=== PATIENT | male | born 1965 | race Caucasian/White ===

== ENCOUNTER 2017-02-01 13:42 | Observation (INO) | payer OTHER ==
[2017-02-01] MEDS ORDERED: Aspirin 81 MG Tab.Chew PO ONE (14:15)
[2017-02-01] MEDS ORDERED: Sodium Chloride 0.9% 10 ML Syringe FLUSH PRN (14:15)
[2017-02-01] MEDS ORDERED: Sodium Chloride 0.9% 2.5 ML Syringe FLUSH PRN (14:15)
--- NOTE | 2017-02-01 14:33 | EDM.PDOC ---
ED HISTORY OF PRESENT ILLNESS - General Chief Complaint: Cardiovascular Problem Stated Complaint: PT WOULD LIKE TO GET CHECK Time Seen by Provider: 02/01/17 13:52 Source of Information: Reports: Patient History Limitations: Reports: No limitations - History of Present Illness INITIAL COMMENTS - FREE TEXT/NARRATIVE: HISTORY AND PHYSICAL: History of present illness: [51-year-old male with a history of morbid obesity, hypertension previously observed but never treated, long-term smoking history but recently quit, no prior cardiac workup, now presents emergent department complaining of back pain radiating to the chest with right upper extremity pain and aching in the elbow appear patient was ambulating and doing light activity at work when he had sudden onset of pain in his mid back radiating to his chest with right upper extremity pain to his elbow. Patient got short of breath and diaphoretic. No nausea or vomiting. Patient waited and the pain improved but did not resolve completely until he arrived in the emergency department after driving himself from work Review of systems: As per history of present illness and below otherwise all systems reviewed and negative. Past medical history: As per history of present illness and as reviewed below otherwise noncontributory. Surgical history: As per history of present illness and as reviewed below otherwise noncontributory. Social history: No reported history of drug or alcohol abuse. Family history: As per history of present illness and as reviewed below otherwise noncontributory. Physical exam: HEENT: Atraumatic, normocephalic, pupils reactive, negative for conjunctival pallor or scleral icterus, mucous membranes moist, throat clear, neck supple, nontender, trachea midline. Lungs: Clear to auscultation, breath sounds equal bilaterally, chest nontender. Heart: S1S2, regular, negative for clicks, rubs, or JVD. Abdomen: Soft, nondistended, nontender. Negative for masses or hepatosplenomegaly. Negative for costovertebral tenderness. Pelvis: Stable nontender. Genitourinary: Deferred. Rectal: Deferred. Extremities: Atraumatic, negative for cords or calf pain. Neurovascular unremarkable. Neuro: Awake, alert, oriented. Cranial nerves grossly unremarkable. Cerebellum unremarkable. Motor and sensory unremarkable throughout. Exam nonfocal. Diagnostics: [EKG with normal sinus rhythm at 82 normal axis no STEMI incomplete RBBB Chest x-ray unremarkable interpreted by me] Therapeutics: [Aspirin given by mouth] Impression: [Chest pain] Plan: [Signs and symptoms consistent with chest pain possible cardiac etiology. No prior workup and multiple risk factors. Pain-free now with unremarkable EKG. Hemodynamically stable however blood pressure elevated consistent with suspected history of untreated hypertension. Full workup pending including CTA of the chest to rule out aortic involvement or PE. Case discussed with Dr. Patrick Jiménez hospitalist cable installation manager who is aware of history and findings and agrees with observation telemetry admission to his service. Definitive disposition and diagnosis as appropriate pending reevaluation and review of above. - Related Data Allergies/ADRs: Allergies Allergy/AdvReac Type Severity Reaction Status Date / Time No Known Allergies Allergy Verified 02/01/17 13:49 Home Meds: Home Meds . [No Known Home Meds] 02/01/17 [History] Past Medical History HEENT History: Reports: Impaired vision Musculoskeletal History: Reports: Arthritis, Fracture - Past Surgical History Musculoskeletal Surgical History: Reports: Other (see below) Other Musculoskeletal Surgeries/Procedures:: Back and leg Surgery Social & Family History - Tobacco Use Smoking Status *Q: Former Smoker Years of Tobacco use: 37 Packs/Tins Daily: 1 Used Tobacco, but Quit: Yes Month Tobacco Last Used: August - Caffeine Use Caffeine Use: Reports: Coffee Caffeine Use Comment: Pt reports he drinks 3cups daily - Recreational Drug Use Recreational Drug Use: No ED ROS GENERAL - Review of Systems Review Of Systems: See Below (History of present illness) ED EXAM, GENERAL - Physical Exam Exam: See Below (History of present illness) Course - Vital Signs Last Recorded V/S: Last Vital Signs Temp 36.7 C 02/01/17 13:50 Pulse 86 02/01/17 13:50 Resp 18 02/01/17 13:50 BP 162/93 H 02/01/17 13:50 Pulse Ox 96 02/01/17 13:50 - Orders/Labs/Meds Orders: Active Orders 24 hr Category Date Time Status Admission Status [Patient Status] [ADT] Stat ADT 02/01/17 14:47 Ordered EKG 12 Lead [EKG Documentation Completion] [RC] STAT Care 02/01/17 13:45 Active EKG 12 Lead [EKG Documentation Completion] [RC] STAT Care 02/01/17 14:15 Inactive Ang Chest [CT] Stat Exams 02/01/17 14:15 Ordered Chest 1V Frontal [CR] Stat Exams 02/01/17 14:15 Ordered Sodium Chloride 0.9% [Normal Saline] 1,000 ml Med 02/01/17 14:15 Active IV ASDIRECTED Sodium Chloride 0.9% [Saline Flush] Med 02/01/17 14:15 Active 10 ml FLUSH ASDIRECTED PRN Sodium Chloride 0.9% [Saline Flush] Med 02/01/17 14:15 Active 2.5 ml FLUSH ASDIRECTED PRN Peripheral IV Insertion Adult [OM.PC] Stat Oth 02/01/17 14:15 Ordered Peripheral IV Insertion Adult [OM.PC] Stat Oth 02/01/17 14:15 Ordered Medication Orders Sodium Chloride (Normal Saline) 1,000 mls @ 125 mls/hr IV ASDIRECTED ABIMBOLA Last Admin: 02/01/17 14:38 Dose: 125 mls/hr Sodium Chloride (Saline Flush) 10 ml FLUSH ASDIRECTED PRN PRN Reason: Keep Vein Open Sodium Chloride (Saline Flush) 2.5 ml FLUSH ASDIRECTED PRN PRN Reason: Keep Vein Open Last Admin: 02/01/17 14:39 Dose: 2.5 ml Labs: Laboratory Tests 02/01/17 02/01/17 02/01/17 Range/Units 14:28 14:28 14:28 WBC 7.23 (4.0-11.0) K/uL RBC 5.27 (4.50-5.90) M/uL Hgb 16.0 (13.0-17.0) g/dL Hct 46.7 (38.0-50.0) % MCV 88.6 (80.0-98.0) fL MCH 30.4 (27.0-32.0) pg MCHC 34.3 (31.0-37.0) g/dL RDW Std Deviation 40.4 (28.0-62.0) fl RDW Coeff of Rosalino 13 (11.0-15.0) % Plt Count 218 (150-400) K/uL MPV 11.60 (7.40-12.00) fL Neut % (Auto) 52.0 (48.0-80.0) % Lymph % (Auto) 38.6 (16.0-40.0) % King % (Auto) 6.2 (0.0-15.0) % Eos % (Auto) 2.5 (0.0-7.0) % Baso % (Auto) 0.7 (0.0-1.5) % Neut # (Auto) 3.8 (1.4-5.7) K/uL Lymph # (Auto) 2.8 H (0.6-2.4) K/uL King # (Auto) 0.5 (0.0-0.8) K/uL Eos # (Auto) 0.2 (0.0-0.7) K/uL Baso # (Auto) 0.1 (0.0-0.1) K/uL Nucleated RBC % 0.0 /100WBC Nucleated RBCs # 0 K/uL Sodium 135 L (136-146) mmol/L Potassium 4.3 (3.5-5.1) mmol/L Chloride 103 (98-110) mmol/L Carbon Dioxide 20 L (21-31) mmol/L BUN 11 (6.0-23.0) mg/dL Creatinine 0.8 (0.6-1.5) mg/dL Est Cr Clr Drug Dosing 112.80 mL/min Estimated GFR (MDRD) > 60.0 ml/min Glucose 219 H (60-110) mg/dL Calcium 10.0 (8.8-10.8) mg/dL Total Bilirubin 0.4 (0.1-1.5) mg/dL AST 23 (5-40) IU/L ALT 30 (8-54) IU/L Alkaline Phosphatase 112 (40-150) Troponin I < 0.10 (0.0-0.29) NG/ML Total Protein 8.5 H (6.0-8.0) g/dL Albumin 4.7 (3.5-5.0) g/dL Globulin 3.8 H (2.0-3.5) g/dL Albumin/Globulin Ratio 1.2 L (1.3-2.8) Meds: Medications Generic Name Dose Route Start Last Admin Trade Name Freq PRN Reason Stop Dose Admin Sodium Chloride 1,000 mls @ 125 mls/hr 02/01/17 14:15 02/01/17 14:38 Normal Saline IV 125 mls/hr ASDIRECTED ABIMBOLA Administration Sodium Chloride 10 ml 02/01/17 14:15 Saline Flush FLUSH ASDIRECTED PRN Keep Vein Open Sodium Chloride 2.5 ml 02/01/17 14:15 02/01/17 14:39 Saline Flush FLUSH 2.5 ml ASDIRECTED PRN Administration Keep Vein Open Discontinued Medications Generic Name Dose Route Start Last Admin Trade Name Freq PRN Reason Stop Dose Admin Aspirin 324 mg 02/01/17 14:15 02/01/17 14:39 Aspirin PO 02/01/17 14:16 324 mg ONETIME ONE Administration Iopamidol 50 ml 02/01/17 14:43 02/01/17 14:45 Isovue Multipack-370 (76%) IVPUSH 02/01/17 14:44 50 ml ONETIME STA Administration Departure - Departure Time of Disposition: 15:27 Disposition: Refer to Observation Condition: good Clinical Impression: Chest pain, Hypertension, New onset type 2 diabetes mellitus Forms: ED Department Discharge - My Orders Last 24 Hours: My Active Orders 02/01/17 13:45 EKG 12 Lead [EKG Documentation Completion] [RC] STAT 02/01/17 14:15 EKG 12 Lead [EKG Documentation Completion] [RC] STAT Ang Chest [CT] Stat Chest 1V Frontal [CR] Stat Sodium Chloride 0.9% [Normal Saline] 1,000 ml IV ASDIRECTED Sodium Chloride 0.9% [Saline Flush] 10 ml FLUSH ASDIRECTED PRN Sodium Chloride 0.9% [Saline Flush] 2.5 ml FLUSH ASDIRECTED PRN Peripheral IV Insertion Adult [OM.PC] Stat Peripheral IV Insertion Adult [OM.PC] Stat 02/01/17 14:47 Admission Status [Patient Status] [ADT] Stat - Assessment/Plan Last 24 Hours: My Active Orders 02/01/17 13:45 EKG 12 Lead [EKG Documentation Completion] [RC] STAT 02/01/17 14:15 EKG 12 Lead [EKG Documentation Completion] [RC] STAT Ang Chest [CT] Stat Chest 1V Frontal [CR] Stat Sodium Chloride 0.9% [Normal Saline] 1,000 ml IV ASDIRECTED Sodium Chloride 0.9% [Saline Flush] 10 ml FLUSH ASDIRECTED PRN Sodium Chloride 0.9% [Saline Flush] 2.5 ml FLUSH ASDIRECTED PRN Peripheral IV Insertion Adult [OM.PC] Stat Peripheral IV Insertion Adult [OM.PC] Stat 02/01/17 14:47 Admission Status [Patient Status] [ADT] Stat
[2017-02-01] MEDS: Sodium Chloride 0.9% 1,000 ML IV SCH (14:38)
[2017-02-01] MEDS ORDERED: Iopamidol 755 MG/ML 500 ML Multipack Bottle IVPUSH STA (14:43)
[2017-02-01 14:59] LABS: CHLORIDE,CL 103 mmol/L (98-110); SODIUM,NA 135 mmol/L (136-146)
--- NOTE | 2017-02-01 15:25 | PCM.HP ---
H&P History of Present Illness - General Date of Service: 02/01/17 Source of Information: Patient - History of Present Illness Onset of Symptoms: Reports: today Duration of Symptoms: Reports: Minutes: Location: Reports: back, upper extremity, right Quality: Reports: Sharp, Stabbing Severity: severe Improves with: Reports: None Worsens with: Reports: None Associated Symptoms: Reports: diaphoresis - Related Data Allergies/Adverse Reactions: Allergies Allergy/AdvReac Type Severity Reaction Status Date / Time No Known Allergies Allergy Verified 02/01/17 13:49 Home Medications: Home Meds . [No Known Home Meds] 02/01/17 [History] Past Medical History HEENT History: Reports: Impaired vision Musculoskeletal History: Reports: Arthritis, Fracture - Past Surgical History Musculoskeletal Surgical History: Reports: Other (see below) Other Musculoskeletal Surgeries/Procedures:: Back and leg Surgery Other Surgical History Comment: ORIF. L tibia fibula Social & Family History - Family History Oncologic: Reports: Other (see below) (sister 18 of "cancer") - Tobacco Use Smoking Status *Q: Former Smoker Tobacco Use Within Last Twelve Months: Snuff/Dip Years of Tobacco use: 37 Packs/Tins Daily: 1 Used Tobacco, but Quit: Yes Month Tobacco Last Used: August - Caffeine Use Caffeine Use: Reports: Coffee Caffeine Use Comment: Pt reports he drinks 3cups daily - Recreational Drug Use Recreational Drug Use: No H&P Review of Systems - Review of Systems: Review Of Systems: See Below General: Reports: no symptoms HEENT: Reports: no symptoms Pulmonary: Reports: Shortness of Breath, Other (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) Cardiovascular: Reports: chest pain Gastrointestinal: Reports: No symptoms Genitourinary: Reports: no symptoms Musculoskeletal: Reports: no symptoms Skin: Reports: no symptoms Psychiatric: Reports: no symptoms Neurological: Reports: No Symptoms Exam - Exam Exam: See Below - Vital Signs Vital Signs: Last Vital Signs Temp 36.7 C 02/01/17 13:50 Pulse 86 02/01/17 13:50 Resp 18 02/01/17 13:50 BP 162/93 H 02/01/17 13:50 Pulse Ox 96 02/01/17 13:50 Weight: 123.6 kg - Exam General: alert, oriented HEENT: Posterior pharynx clear (small pharyngeal opening) Neck: other (fleshy neck) Lungs: Decreased breath sounds, Other (notenderness chest wall or intrascapular area) Cardiovascular: regular rate Abdomen: normal bowel sounds Rectal (Males) Exam: Deferred Back Exam: normal inspection Extremities: normal inspection (scars L mackey) Neuro Extensive - Mental Status: alert, oriented x3, memory intact Psychiatric: alert, normal affect - Patient Data Lab Results last 24 hrs: Laboratory Results - last 24 hr 02/01/17 02/01/17 02/01/17 Range/Units 14:28 14:28 14:28 WBC 7.23 (4.0-11.0) K/uL RBC 5.27 (4.50-5.90) M/uL Hgb 16.0 (13.0-17.0) g/dL Hct 46.7 (38.0-50.0) % MCV 88.6 (80.0-98.0) fL MCH 30.4 (27.0-32.0) pg MCHC 34.3 (31.0-37.0) g/dL RDW Std Deviation 40.4 (28.0-62.0) fl RDW Coeff of Rosalino 13 (11.0-15.0) % Plt Count 218 (150-400) K/uL MPV 11.60 (7.40-12.00) fL Neut % (Auto) 52.0 (48.0-80.0) % Lymph % (Auto) 38.6 (16.0-40.0) % Frederick % (Auto) 6.2 (0.0-15.0) % Eos % (Auto) 2.5 (0.0-7.0) % Baso % (Auto) 0.7 (0.0-1.5) % Neut # (Auto) 3.8 (1.4-5.7) K/uL Lymph # (Auto) 2.8 H (0.6-2.4) K/uL Frederick # (Auto) 0.5 (0.0-0.8) K/uL Eos # (Auto) 0.2 (0.0-0.7) K/uL Baso # (Auto) 0.1 (0.0-0.1) K/uL Nucleated RBC % 0.0 /100WBC Nucleated RBCs # 0 K/uL Sodium 135 L (136-146) mmol/L Potassium 4.3 (3.5-5.1) mmol/L Chloride 103 (98-110) mmol/L Carbon Dioxide 20 L (21-31) mmol/L BUN 11 (6.0-23.0) mg/dL Creatinine 0.8 (0.6-1.5) mg/dL Est Cr Clr Drug Dosing 112.80 mL/min Estimated GFR (MDRD) > 60.0 ml/min Glucose 219 H (60-110) mg/dL Calcium 10.0 (8.8-10.8) mg/dL Total Bilirubin 0.4 (0.1-1.5) mg/dL AST 23 (5-40) IU/L ALT 30 (8-54) IU/L Alkaline Phosphatase 112 (40-150) Troponin I < 0.10 (0.0-0.29) NG/ML Total Protein 8.5 H (6.0-8.0) g/dL Albumin 4.7 (3.5-5.0) g/dL Globulin 3.8 H (2.0-3.5) g/dL Albumin/Globulin Ratio 1.2 L (1.3-2.8) Result Diagrams: 02/01/17 14:28 02/01/17 14:28 EKG INTERPRETATION Rhythm: NSR P-wave: present QRS: RBBB (incomplete) ST-T: normal QT: normal *Q Meaningful Use (ADM) - VTE *Q VTE Criteria *Q: - Stroke *Q Stroke Criteria *Q: - AMI *Q AMI Criteria *Q: Problem List Initiated/Reviewed/Updated: Yes Orders Last 24hrs: Active Orders 24 hr Category Date Time Status EKG 12 Lead [EKG Documentation Completion] [RC] STAT Care 02/01/17 13:45 Active EKG 12 Lead [EKG Documentation Completion] [RC] STAT Care 02/01/17 14:15 Inactive Ang Chest [CT] Stat Exams 02/01/17 14:15 Ordered Chest 1V Frontal [CR] Stat Exams 02/01/17 14:15 Ordered Sodium Chloride 0.9% [Normal Saline] 1,000 ml Med 02/01/17 14:15 Active IV ASDIRECTED Sodium Chloride 0.9% [Saline Flush] Med 02/01/17 14:15 Active 10 ml FLUSH ASDIRECTED PRN Sodium Chloride 0.9% [Saline Flush] Med 02/01/17 14:15 Active 2.5 ml FLUSH ASDIRECTED PRN Peripheral IV Insertion Adult [OM.PC] Stat Ot 02/01/17 14:15 Ordered Peripheral IV Insertion Adult [OM.PC] Stat Ot 02/01/17 14:15 Ordered Medication Orders Sodium Chloride (Normal Saline) 1,000 mls @ 125 mls/hr IV ASDIRECTED ABIMBOLA Last Admin: 02/01/17 14:38 Dose: 125 mls/hr Sodium Chloride (Saline Flush) 10 ml FLUSH ASDIRECTED PRN PRN Reason: Keep Vein Open Sodium Chloride (Saline Flush) 2.5 ml FLUSH ASDIRECTED PRN PRN Reason: Keep Vein Open Last Admin: 02/01/17 14:39 Dose: 2.5 ml Assessment/Plan Comment:: atypical chest pain, non-exertional,sharp lack of associated symptoms Risk factors; hypertension elevated blood sugar smoking overweight/sedentary asa, beta miroslava check lipids further troponins and ECGs
--- NOTE | 2017-02-01 15:41 | CR ---
EXAMINATION: PA chest radiograph. HISTORY: Chest pain. FINDINGS: The trachea is midline. The cardiomediastinal silhouette is within normal limits. No pulmonary infil trates, effusions or pneumothorax. There is a mild interstitial prominence. Osseous structures appear unremarkable. IMPRESSION: No acute cardiopulmonary process.
--- NOTE | 2017-02-01 15:55 | CT ---
EXAMINATION: CTA chest HISTORY: Chest pain COMPARISON: 07/03/2009 TECHNIQUE: Axial CT images obtained through the chest following the administration of Isovue-370. Co rachel and sagittal reconstructions obtained. FINDINGS: The lungs are clear without focal consolidation. No pleural effusion or pneumothorax. Ther e is a calcified granuloma within the left upper lobe. The heart is normal in size without a pericar dial effusion. The thoracic aorta is normal in caliber. No mediastinal or hilar lymphadenopathy. The main and central pulmonary arteries are patent without evidence of a pulmonary embolism. Evaluation of the subsegmental pulmonary arteries and the left lower lobe is difficult due to motion. The cent ral airways are clear. No axillary lymphadenopathy. The visualized images of the upper abdomen appear normal. No suspicious osseous abnormalities identi fied. IMPRESSION: No acute cardiopulmonary finding.
[2017-02-01] MEDS: Nicotine 14 MG/24 Hr Patch TRDERM SCH (16:34)
[2017-02-01] MEDS: Metoprolol Tartrate 50 MG Tab PO SCH (21:02)
[2017-02-02] MEDS: Sodium Chloride 0.9% 1,000 ML IV SCH (01:25)
[2017-02-02] MEDS ORDERED: Aspirin 81 MG Tab.Chew PO SCH (09:00)
[2017-02-02] MEDS: Metoprolol Tartrate 50 MG Tab PO SCH (09:33)
[2017-02-02] MEDS: Nicotine 14 MG/24 Hr Patch TRDERM SCH (09:33)
[2017-02-02 09:34] VITALS: BP 124/89
--- NOTE | 2017-02-03 16:16 | PCM.DCSUM1 ---
<Mack Thacker - Last Filed: 02/03/17 16:11> Discharge Summary - Hospital Course Free Text/Narrative:: Admission diagnoses: #1. Chest pain Discharge diagnoses: #1. Chest pain, resolved #2. Dyslipidemia #3. Newly diagnosed type II diabetic 51-year-old male admitted with chest pain. Full cardiac workup was done and unremarkable. Serial troponins were negative. EKG was unremarkable. Chest x-ray was unremarkable. CT angiogram was unremarkable. CBC and CMP were unremarkable. Lipid panel showed elevated triglycerides and elevated cholesterol level. Patient also had elevated sugars during admission and hemoglobin A1c was obtained which was 10.7. Patient had no chest pain during admission. He also denied any shortness of breath, wheezing, cough, abdominal pain, nausea, vomiting, constipation, diarrhea, abdominal pain, dizziness, headache. The time of discharge the patient had no chest pain, was ambulating without any problems , tolerating oral intake, voiding appropriately. - Discharge Data Discharge Date: 02/02/17 Discharge Disposition: Home, Self-Care 01 Condition: Fair - Discharge Diagnosis/Problem(s) (1) Dyslipidemia SNOMED Code(s): 078707190 ICD Code: E78.5 - HYPERLIPIDEMIA, UNSPECIFIED Status: Acute (2) Chest pain SNOMED Code(s): 61977029 ICD Code: R07.9 - CHEST PAIN, UNSPECIFIED Status: Acute (3) Hypertension SNOMED Code(s): 60015498 ICD Code: I10 - ESSENTIAL (PRIMARY) HYPERTENSION Status: Acute (4) New onset type 2 diabetes mellitus SNOMED Code(s): 27673091 ICD Code: E11.9 - TYPE 2 DIABETES MELLITUS WITHOUT COMPLICATIONS Status: Acute - Patient Summary/Data Consults: Consultations 02/02/17 08:50 Consult to Diabetic Nurse Specialist [CONS] Routine - Patient Instructions Diet: Heart Healthy Diet Activity: As Tolerated Driving: May Drive Today Showering/Bathing: May Shower Notify Provider of: Fever, Increased Pain, Nausea and/or Vomiting - Discharge Plan Prescriptions/Med Rec: Lisinopril 10 mg PO DAILY #30 tablet Rosuvastatin [Crestor] 20 mg PO BEDTIME #30 tablet metFORMIN [Glucophage XR] 500 mg PO BIDMEALS #60 tab.er Home Medications: Home Meds Aspirin 81 mg PO DAILY tab.chew 02/02/17 [Rx] Lisinopril 10 mg PO DAILY #30 tablet 02/02/17 [Rx] Rosuvastatin [Crestor] 20 mg PO BEDTIME #30 tablet 02/02/17 [Rx] metFORMIN [Glucophage XR] 500 mg PO BIDMEALS #60 tab.er 02/02/17 [Rx] Patient Handouts: Nonspecific Chest Pain, Hypertension, [id number], Lisinopril tablets, Metformin tablets, Rosuvastatin Tablets, Type 2 Diabetes Mellitus, Adult, [id number] Forms: ED Department Discharge Referrals: Ashlyn Horne MD [Physician] - 02/14/17 8:00 am PCP,None [Primary Care Provider] - - Discharge Summary/Plan Comment DC Time >30 min.: No Discharge Summary/Plan Comment: Admission diagnoses: #1. Chest pain Discharge diagnoses: #1. Chest pain, resolved #2. Dyslipidemia #3. Newly diagnosed type II diabetic #4. Hypertension 51-year-old male admitted with chest pain. Full cardiac workup was done and unremarkable. Serial troponins were negative. EKG was unremarkable. Chest x-ray was unremarkable. CT angiogram was unremarkable. CBC and CMP were unremarkable. Lipid panel showed elevated triglycerides and elevated cholesterol level. Patient also had elevated sugars during admission and hemoglobin A1c was obtained which was 10.7. Patient had no chest pain during admission. He also denied any shortness of breath, wheezing, cough, abdominal pain, nausea, vomiting, constipation, diarrhea, abdominal pain, dizziness, headache. The time of discharge the patient had no chest pain, was ambulating without any problems , tolerating oral intake, voiding appropriately. Discharge plan: #1. Patient will followup with our molding press operator on February 14, 2017. #2. Patient to followup with Dr. Thacker on Feb 09 2017. #3. Patient started on lisinopril 10 mg daily secondary to elevated blood pressure and new diagnosis of type 2 diabetes #4. Patient started on high intensity statin with Crestor 20 mg at bedtime. Patient's ASCVD score was 30%. #5. Patient started on metformin 500 mg twice a day secondary to elevated hemoglobin A1c of 10.7 and new diagnosis of type 2 diabetes. #6. Patient will be contacted by inclusion paraeducator for further education. #7. Patient will take a baby aspirin daily. - Patient Data Vitals - Most Recent: Last Vital Signs Temp 97.7 F 02/02/17 07:52 Pulse 69 02/02/17 09:33 Resp 22 H 02/02/17 07:52 BP 124/89 02/02/17 09:33 Pulse Ox 94 L 02/02/17 07:52 Weight - Most Recent: 126.552 kg Med Orders - Current: Current Medications Discontinued Medications Aspirin (Aspirin) 324 mg PO ONETIME ONE Stop: 02/01/17 14:16 Last Admin: 02/01/17 14:39 Dose: 324 mg Aspirin (Aspirin) 81 mg PO DAILY [facility] Last Admin: 02/02/17 09:33 Dose: 81 mg Sodium Chloride (Normal Saline) 1,000 mls @ 50 mls/hr IV ASDIRECTED [facility] Last Admin: 02/02/17 01:25 Dose: 50 mls/hr Iopamidol (Isovue Multipack-370 (76%)) 50 ml IVPUSH ONETIME STA Stop: 02/01/17 14:44 Last Admin: 02/01/17 14:45 Dose: 50 ml Metoprolol Tartrate (Lopressor) 50 mg PO Q12HR [facility] Last Admin: 02/02/17 09:33 Dose: 50 mg Nicotine (Habitrol) 14 mg TRDERM DAILY [facility] Last Admin: 02/02/17 09:33 Dose: Not Given Sodium Chloride (Saline Flush) 10 ml FLUSH ASDIRECTED PRN PRN Reason: Keep Vein Open Sodium Chloride (Saline Flush) 2.5 ml FLUSH ASDIRECTED PRN PRN Reason: Keep Vein Open Last Admin: 02/01/17 14:39 Dose: 2.5 ml *Q Meaningful Use (DIS) - VTE *Q VTE Criteria *Q: - Stroke *Q Stroke Criteria *Q: - AMI *Q AMI Criteria *Q: <Patrick Dunbar - Last Filed: 02/03/17 17:17> Discharge Summary - Hospital Course Free Text/Narrative:: I was present with the resident during the history and exam. I discussed the case with the resident and agree with the findings and plan as documented in the resident's note. - Patient Summary/Data Consults: Consultations 02/02/17 08:50 Consult to Diabetic Nurse Specialist [CONS] Routine - Patient Data Vitals - Most Recent: Last Vital Signs Temp 36.5 C 02/02/17 07:52 Pulse 69 02/02/17 09:33 Resp 22 H 02/02/17 07:52 BP 124/89 02/02/17 09:33 Pulse Ox 94 L 02/02/17 07:52 Med Orders - Current: Current Medications Discontinued Medications Aspirin (Aspirin) 324 mg PO ONETIME ONE Stop: 02/01/17 14:16 Last Admin: 02/01/17 14:39 Dose: 324 mg Aspirin (Aspirin) 81 mg PO DAILY [facility] Last Admin: 02/02/17 09:33 Dose: 81 mg Sodium Chloride (Normal Saline) 1,000 mls @ 50 mls/hr IV ASDIRECTED ABIMBOLA Last Admin: 02/02/17 01:25 Dose: 50 mls/hr Iopamidol (Isovue Multipack-370 (76%)) 50 ml IVPUSH ONETIME STA Stop: 02/01/17 14:44 Last Admin: 02/01/17 14:45 Dose: 50 ml Metoprolol Tartrate (Lopressor) 50 mg PO Q12HR [facility] Last Admin: 02/02/17 09:33 Dose: 50 mg Nicotine (Habitrol) 14 mg TRDERM DAILY [facility] Last Admin: 02/02/17 09:33 Dose: Not Given Sodium Chloride (Saline Flush) 10 ml FLUSH ASDIRECTED PRN PRN Reason: Keep Vein Open Sodium Chloride (Saline Flush) 2.5 ml FLUSH ASDIRECTED PRN PRN Reason: Keep Vein Open Last Admin: 02/01/17 14:39 Dose: 2.5 ml *Q Meaningful Use (DIS) - VTE *Q VTE Criteria *Q: - Stroke *Q Stroke Criteria *Q: - AMI *Q AMI Criteria *Q:
== END 2017-02-02 11:15 | disposition home or self-care (01) ==
LOC: MW.ED 13:42 → MW.MS 15:33
PROVIDERS: ADMIT Internal Medicine; ATTEND Internal Medicine
DX: E78.1 Pure hyperglyceridemia (principal); E78.00 Pure hypercholesterolemia, unspecified; I10 Essential (primary) hypertension; E11.9 Type 2 diabetes mellitus without complications; R07.89 Other chest pain; M19.90 Unspecified osteoarthritis, unspecified site; Z87.891 Personal history of nicotine dependence; Z98.890 Other specified postprocedural states
CPT/HCPCS: 36415; 71010; 71275; 80053; 80061; 82962; 83036; 84484; 85025; 93005; 96360; 96361; 99285; A9270; G0378; J7040; Q9967

== ENCOUNTER → 2017-02-09 | Outpatient (CLI) | payer OTHER | LOC: MW.CHRC 14:17 | PROVIDERS: ATTEND Family Medicine | DX: E11.9 Type 2 diabetes mellitus without complications (principal); E66.9 Obesity, unspecified | CPT/HCPCS: 36415; 81001; 82044; 84439; 84443 ==

== ENCOUNTER → 2017-02-18 | Outpatient (CLI) | payer OTHER ==
--- NOTE | 2017-02-18 08:36 | PCM.PRNOTE ---
- Free Text/Narrative Note: Exercise MIBI Indication chest pain Patient was brought to the stress test lab in postabsorptive state verbal and paper consent was obtained from patient Vital signs at resting state blood pressure of 122/82 with a heart rate of 115 EKG shows sinus rhythm no ST changes or Q wave Maximal heart rate of 144 and target heart rate is 144 Patient barely reached the target heart rate, completed stage III Jacky protocol Peak blood pressure is 154/84 Total exercise time of 8.47 minutes EKG sinus rhythm without further ST changes METS 10.1 No symptom of chest pain or feeling dizzy Impression Normal hemodynamics, sub optimal chronotropic response, fair exercise capacity, negative for ischemia on EKG Plan switch to lexiscan
--- NOTE | 2017-02-18 08:36 | PCM.PRNOTE ---
- Free Text/Narrative Note: Lexiscan Indication chest pain Patient was supervised today during infusion portion of the stress test. The patient received Regadenoson 0.4 mg IV and nuclear agent using standard protocol. Sestamibi [id number] 25 Mci was gievn afterwards Baseline blood pressure is 130/76 with a heart rate 87 EKG sinus rhythm without ST abnormalities Vital signs at injection: Peak blood pressure 119/77 with a heart rate of 100 Vital signs at 4 minutes post injection: Peak blood pressure 124/75 with a heart rate of 92 EKG sinus rhythm without further ST changes Patient denied any symptoms Adverse effects from Elayne scan none Test done due to end of protocol Impression 1. electrocardiographically nondiagnostic for ischemia due to chemical protocol 2. nuclear imaging pending
--- NOTE | 2017-02-18 13:51 | NM ---
EXAMINATION: Nuclear medicine myocardial perfusion study HISTORY: Chest pain. PROCEDURE: Following intravenous administration of 0.4 mg of Lexiscan and 27.5 mCi of technetium 99m sestamib i, stress SPECT images including gating imaging was performed. FINDINGS: Stress myocardial SPECT images demonstrates mildly heterogeneous uptake within the left ventricular myocardium without a focal defect. Review of gated images demonstrates normal wall motion, contractility and wall thickening. The left ventricular ejection fraction is 49 %. The left ventricular chamber size is normal. IMPRESSION: 1. No evidence of myocardial ischemia. 2. Normal ventricular chamber size and function with borderline ejection fraction of 49 %.
--- NOTE | 2017-02-22 12:59 | ECHO ---
The echocardiogram report can be seen in this patient's EMR in the Reports section. [id number]
== END ==
LOC: MW.NM 07:36
PROVIDERS: ATTEND Internal Medicine
DX: R07.9 Chest pain, unspecified (principal)
CPT/HCPCS: 78451; 93017; 93306; A9500; J2785